=== PATIENT | male | born 1990 | race Caucasian/White ===

== ENCOUNTER 2018-11-25 21:50 | Emergency (ER) | payer OTHER ==
[~2018-11-25 21:50] MED LIST: AMOX-362 PO; DEXT5TAB10 PO; HYDR-653 PO; IBUP800T37 PO; ONDA4TAB PO; PER PO; TRAM-420 PO
--- NOTE | 2018-11-25 21:53 | ER Report ---
History and Physical Time Seen By MD: 21:52 HPI/ROS CHIEF COMPLAINT: Vomiting and diarrhea HISTORY OF PRESENT ILLNESS: 28-year-old male presents to the ER complaining of severe crampy abdominal pain starting this morning with vomiting and diarrhea lasting several hours. It has improved, but he is here in the emergency departm ent concerns about his abdominal pain and vomiting and diarrhea. She denies blood or mucus per rectum. Patient denies fever or chills. Patient denies recent antibiotic use. Patient denies consumption of bad food. REVIEW OF SYSTEMS: Respiratory: No cough, no dyspnea. Cardiovascular: No chest pain, no palpitations. Gastrointestinal: As above Musculoskeletal: No back pain. Allergies: Coded Allergies: No Known Drug Allergies (Unverified , 03/19/16) Home Meds Active Scripts Ondansetron 4 Mg Odt (ONDANSETRON 4 MG ODT) 4 Mg Tab.rapdis, 4 MG PO Q6H PRN for NAUSEA/VOMITING, #12 TAB Prov:ULCIA CARTER DO 11/25/18 Hydrocodone Bit/Acetaminophen (NORCO 5-325 TABLET) 1 Each Tablet, 1 EACH PO Q4H PRN for PAIN, #12 TAB Prov:LUCIA CARTER DO 03/19/16 Ibuprofen (IBUPROFEN) 800 Mg Tablet, 1 TAB PO Q8H for pain or fever, #60 TAB Prov:BENIGNO CAMPBELL DO 03/16/16 Tramadol Hcl (TRAMADOL HCL) 50 Mg Tablet, 50-100 MG PO Q4-6H for PAIN, #30 TAB Prov:BENIGNO CAMPBELL DO 03/16/16 Amoxicillin (AMOXICILLIN) 500 Mg Capsule, 1 CAP PO Q8H, #21 CAPSULE Prov:BENIGNO CAMPBELL DO 03/16/16 Reported Medications Amphet Asp/Amphet/D-Amphet (ADDERALL 5 MG TABLET) 5 Mg Tablet, 5 MG PO DAILY 02/25/16 Reviewed Nurses Notes: Yes Old Medical Records Reviewed: Yes Hx Smoking: No Smoking Status: Never Smoker Exposure to Second Hand Smoke?: No Constitutional Vital Sign - Last 24 Hours 11/25/18 21:56 Temp 97.9 Pulse 80 Resp 18 B/P (MAP) 152/101 Pulse Ox 97 O2 Delivery Room Air Physical Exam General Appearance: The patient is alert, has no immediate need for airway protection and no current signs of toxicity. Vital signs stable, afebrile, pulse ox normal Eyes: Pupils equal and round no injection. Respiratory: Chest is non tender, lungs are clear to auscultation. Cardiac: regular rate and rhythm Gastrointestinal: Abdomen is soft and non tender, no masses, bowel sounds normal. Musculoskeletal: Neck: Neck is supple and non tender. Extremities have full range of motion and are non tender. Skin: No rashes or lesions. DIFFERENTIAL DIAGNOSIS: After history and physical exam differential diagnosis was considered for abdominal pain including but not limited to appendicitis, cholecystitis, gastritis and urinary tract infection. Medical Decision Making Data Points Laboratory Hematology Test 11/25/18 21:54 Urine Color Straw Urine Clarity Clear Urine pH 7.0 pH (4.8-9.5) Urine Specific [place] 1.008 Urine Protein Negative mg/dL (NEGATIVE) Urine Glucose (UA) Negative mg/dL (NEGATIVE) Urine Ketones Negative mg/dL (NEGATIVE) Urine Blood Negative (NEGATIVE) Urine Nitrite Negative (NEGATIVE) Urine Bilirubin Negative (NEGATIVE) Urine Urobilinogen Negative mg/dL (0.2-1.9) Urine Leukocyte Esterase Negative (NEGATIVE) Urine RBC <1 /HPF (0-2/HPF) Urine WBC None /HPF (0-5/HPF) Urine Squamous Epithelial Cells None /LPF (</=FEW) Urine Bacteria Negative /HPF (NONE-FEW) Urine Mucus None /HPF (NONE-FEW) Chemistry Test 11/25/18 21:54 Urine Color Straw Urine Clarity Clear Urine pH 7.0 pH (4.8-9.5) Urine Specific [place] 1.008 Urine Protein Negative mg/dL (NEGATIVE) Urine Glucose (UA) Negative mg/dL (NEGATIVE) Urine Ketones Negative mg/dL (NEGATIVE) Urine Blood Negative (NEGATIVE) Urine Nitrite Negative (NEGATIVE) Urine Bilirubin Negative (NEGATIVE) Urine Urobilinogen Negative mg/dL (0.2-1.9) Urine Leukocyte Esterase Negative (NEGATIVE) Urine RBC <1 /HPF (0-2/HPF) Urine WBC None /HPF (0-5/HPF) Urine Squamous Epithelial Cells None /LPF (</=FEW) Urine Bacteria Negative /HPF (NONE-FEW) Urine Mucus None /HPF (NONE-FEW) Urinalysis Test 11/25/18 21:54 Urine Color Straw Urine Clarity Clear Urine pH 7.0 pH (4.8-9.5) Urine Specific [place] 1.008 Urine Protein Negative mg/dL (NEGATIVE) Urine Glucose (UA) Negative mg/dL (NEGATIVE) Urine Ketones Negative mg/dL (NEGATIVE) Urine Blood Negative (NEGATIVE) Urine Nitrite Negative (NEGATIVE) Urine Bilirubin Negative (NEGATIVE) Urine Urobilinogen Negative mg/dL (0.2-1.9) Urine Leukocyte Esterase Negative (NEGATIVE) Urine RBC <1 /HPF (0-2/HPF) Urine WBC None /HPF (0-5/HPF) Urine Squamous Epithelial Cells None /LPF (</=FEW) Urine Bacteria Negative /HPF (NONE-FEW) Urine Mucus None /HPF (NONE-FEW) ED Course/Re-evaluation ED Course Patient was admitted to an examination room. H&P was done. The differential diagnoses was considered. Patient with vomiting and diarrhea all day long severe crampy abdominal pain. He feels slightly better on arrival to the ER. He is requesting medication for nausea. He declines IV fluids, diagnostic studies. Patient advised clear liquid diet for 24-48 hours and advance to [place] diet. Patient advised ibuprofen for inflammatory pain relief. Decision to Disposition Date: Nov 25, 2018 Decision to Disposition Time: 22:06 Depart Departure Latest Vital Signs Vital Signs Date Time Temp Pulse Resp B/P (MAP) Pulse Ox O2 Delivery O2 Flow Rate FiO2 11/25/18 21:56 97.9 80 18 152/101 97 Room Air Impression: Primary Impression: Gastroenteritis Additional Impression: Vomiting and diarrhea Condition: Improved Disposition: HOME OR SELF-CARE Referrals: DEEPIKA LOPEZ [facility] (PCP) New Scripts Ondansetron 4 Mg Odt (ONDANSETRON 4 MG ODT) 4 Mg Tab.rapdis 4 MG PO Q6H PRN for NAUSEA/VOMITING, #12 TAB Prov: LUCIA CARTER DO 11/25/18 Patient Instructions: Clear Liquid Diet (ED), Food Poisoning (ED) Additional Instructions: Follow clear liquid diet for 24-48 hours and advance to [place] diet, bananas, rice, applesauce and toast Take ibuprofen as needed for pain relief Use Zofran to control vomiting Follow-up with primary care if unimproved in 3-5 days. Problem Qualifiers LUCIA CARTER DO Nov 25, 2018 21:53
[2018-11-25] MEDS ORDERED: NS(*) 0.9% 1000 ML BAG 1,000 ML IV ONE (21:54)
[2018-11-25] MEDS ORDERED: ONDANSETRON 4 MG/2 ML VIAL IVP ONE (21:55)
[2018-11-25 21:56] VITALS: BP 152/101
[2018-11-25] MEDS ORDERED: KETOROLAC 30 MG/ML VIAL IVP ONE (22:00)
[2018-11-25] MEDS ORDERED: ONDANSETRON 4 MG ODT TH SL ONE (22:05)
[2018-11-25] MEDS ORDERED: ONDA4TAB9 PO (22:08)
== END 2018-11-25 22:16 | disposition home or self-care (01) ==
LOC: ER 22:07
DX: K52.9 Noninfective gastroenteritis and colitis, unspecified (principal); R11.10 Vomiting, unspecified; R19.7 Diarrhea, unspecified
CPT/HCPCS: 81001; 99282